=== PATIENT | male | born 1965 | race African-American/Black ===

== ENCOUNTER 2019-07-07 23:54 | Observation (INO) | payer OTHER, SELFPAY ==
--- NOTE | ~2019-07-07 | XR_ITS ---
EXAMINATION: XR chest 2V DATE: 07/08/2019 01:09 INDICATION: Asthma presenting with mid sternal chest pain TECHNIQUE: frontal view of the chest was obtained. COMPARISON: Chest radiograph dated 05/26/2014 FINDINGS: Lungs are now clear with no focal airspace opacities, pulmonary edema, pleural effusion or pneumothor ax. The cardiomediastinal silhouette is normal. Intravenously screw projecting over the right humeral head and glenoid. IMPRESSION: 1. No acute cardiopulmonary disease. Reviewed, dictated and finalized at location A.
[2019-07-07 23:57] VITALS: BP 198/125; PULSE 90; RESP 16; TEMP 36.8; O2SAT 98
[2019-07-08] VITALS (15 sets, daily range): BP systolic 143–191; BP diastolic 95–117; PULSE 65–97; RESP 16–18; TEMP 36.1–36.7; O2SAT 97–100; BMI 40.1
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
--- NOTE | 2019-07-08 00:12 | ECG_ITS ---
Measurements Intervals [place] Rate: 85 P: 51 MS: 143 QRS: 25 QRSD: 99 T: 8 QT: 353 QTc: 421 Interpretive Statements SINUS RHYTHM VENTRICULAR TRIGEMINY BORDERLINE T WAVE ABNORMALITY- INFERIOR LEADS ABNORMAL ECG Electronically Signed On 07-08-2019 7:13:24 CDT by Adrian Hightower D.O.
[2019-07-08] MEDS: NITROGLYCERIN SL 0.4 MG TABLET SUBLINGUAL (00:26)
[2019-07-08] MEDS: ASPIRIN 81 MG CHEWABLE TABLET 324 MG PO (00:26)
--- NOTE | 2019-07-08 00:32 | PC.NURSE ---
PT REPORTING MILD CHEST PRESSURE PRESENT AFTER 2 NITRO'S.
--- NOTE | 2019-07-08 00:35 | PC.NURSE ---
pt reporting chest pain 0/10 after 3 nitros. md notified.
[2019-07-08 00:45] LABS: Basophils Percent Auto 0.3 % (0.2-1.2); Eosinophils Absolute Auto 0.1 K/mm3 (0-0.3); Eosinophils Percent Auto 1.1 % (0-4.4); Hematocrit 44.7 % (42.0-52.0); Hemoglobin 14.8 g/dL (14.0-18.0); Immature Granulocyte Absolute 0.02 K/mm3 (0.00-0.031); Immature Granulocyte Percent A 0.3 % (0-0.5); Lymphocytes Absolute Auto 1.54 K/mm3 (0.9-3.2); Lymphocytes Percent Auto 20.8 % (18.3-44.2); Mean Corpuscular HGB Conc 33.1 g/dl (32-36); Mean Corpuscular Hemoglobin 28.8 pg (26-34); Mean Platelet Volume 9.3 fl (7.4-10.4); Monocytes Absolute Auto 0.6 K/mm3 (0.1-0.6); Monocytes Percent Auto 8.5 % (2.6-8.5); Neutrophils Absolute Auto 5.1 K/mm3 (1.3-6.7); Platelet Count Result 237 k/mm3 (150-375); Red Blood Count 5.14 M/mm3 (4.6-6.20); White Blood Count 7.4 K/mm3 (4.5-10.0)
[2019-07-08 00:57] LABS: Blood Urea Nitrogen 16 mg/dL (9-20); Calcium 9.2 mg/dL (8.4-10.2); Carbon Dioxide 27 mmol/L (22-30); Chloride 105 mmol/L (98-107); Estimated CRCL calculation 103 ml/min; Estimated Glomerular Filt Rate > 60; Glucose 92 mg/dL (75-110); Sodium 138 mmol/L (137-145)
[2019-07-08 01:01] LABS: Prothrombin Time 12.4 Seconds (11.1-14.7)
[2019-07-08 01:02] LABS: Partial Thromboplastin Time 28.6 SECONDS (22.3-36.8)
[2019-07-08 01:24] LABS: Troponin I 0.036 ng/mL (0.000-0.034)
[2019-07-08] MEDS: LABETALOL HCL INJ 100 MG/20 ML VIAL 20 MG IV PUSH (01:36)
[2019-07-08] MEDS: NITROGLYCERIN OINTMENT 1 INCH DOSE TRANSDERM (02:00)
[2019-07-08] MEDS: hydrALAZINE HCL 20 MG/ML VIAL IV PUSH (02:24)
--- NOTE | 2019-07-08 03:18 | ADMGEN ---
This patient, Aaron Kemp, was admitted to IMU Room 207-01. Patient/family oriented to hospital policies and general routines including ID bracelet, bed and alarms, visiting hours, pain management, procedures, bathroom and other care routines, personal items, smoking policy, room service/diet, and visiting hours. Valuables list has been completed. Information on how to activate the Rapid Response Team has been discussed. Patient/Family are encouraged to report perceived risks to care and to ask questions if they do not understand what they are told or what they should do.
[2019-07-08 03:38] LABS: Troponin I 0.043 ng/mL (0.000-0.034)
[2019-07-08 07:21] LABS: Troponin I 0.046 ng/mL (0.000-0.034)
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
[2019-07-08] MEDS: lisinopriL 20 MG TABLET PO (08:55)
[2019-07-08] MEDS: AMLODIPINE BESYLATE 5 MG TABLET PO (08:55)
[2019-07-08] MEDS: hydroCHLOROthiazide 25 MG TABLET PO (12:41)
[2019-07-08] MEDS: CLONIDINE HCL 0.1 MG TABLET PO (12:41)
== END 2019-07-08 16:22 | disposition home or self-care (01) ==
LOC: ANHED 07-08 02:23 → ANHIMU 07-08 03:35
PROVIDERS: Admitting Provider Family Medicine; Emergency Provider Emergency Medicine; Visit Provider Internal Medicine
DX: I16.1 Hypertensive emergency (principal); I10 Essential (primary) hypertension; R07.9 Chest pain, unspecified; J45.909 Unspecified asthma, uncomplicated; Z87.891 Personal history of nicotine dependence; Z28.21 Immunization not carried out because of patient refusal
CPT/HCPCS: 36415; 71046; 80048; 84484; 85025; 85610; 85730; 93005; 96374; 96375; 99285; A9270; G0378; J0360